=== PATIENT | male | born 1985 | race Caucasian/White ===

== ENCOUNTER 2016-03-01 05:43 | Day surgery (SDC) | payer OTHER ==
[2016-03-01] VITALS (7 sets, daily range): BP systolic 122–152; BP diastolic 64–83; PULSE 60–88; RESP 10–16; O2SAT 91–100
[~2016-03-01] VITALS: Ht 188 cm; Wt 102.6 kg
[~2016-03-01 05:43] MED LIST: SERT50TA9 PO; adderall; suboxone
[2016-03-01] MEDS ORDERED: Propofol 10,000 mCg/mL 20 mL Inj ONE (05:44)
[2016-03-01] MEDS ORDERED: fentaNYL-PF 50 mCg/mL 2 mL Inj ONE (05:44)
[2016-03-01] MEDS ORDERED: Phenylephrine 10,000 mCg/mL Inj ONE (05:44)
[2016-03-01] MEDS ORDERED: Ropivacaine-PF 0.5% 30 mL Inj ONE (05:44)
[2016-03-01] MEDS ORDERED: Remifentanil 1 mg/3 mL Inj ONE (05:44)
[2016-03-01] MEDS ORDERED: Ondansetron 2 mg/mL 2 mL Inj ONE (05:44)
[2016-03-01] MEDS ORDERED: MetoCLOpramide 5 mg/mL 2 mL Inj ONE (05:44)
[2016-03-01] MEDS ORDERED: Rocuronium 10 mg/mL 5 mL Inj ONE (05:44)
[2016-03-01] MEDS ORDERED: MeTOProlol 1 mg/mL 5 mL Inj ONE (05:44)
[2016-03-01] MEDS ORDERED: Dexamethasone 4 mg/mL Inj ONE (05:44)
[2016-03-01] MEDS: Lactated Ringer's 1,000 ML IV SCH ×3 (05:48→11:19)
[2016-03-01] MEDS ORDERED: Clindamycin Inj 600 MG in IV Premix 1 EACH IV ONE (06:00)
[2016-03-01] MEDS ORDERED: Bupivacaine-MPF 0.5% 30 mL Inj INJ ONE (08:00)
[2016-03-01] MEDS ORDERED: Lidocaine 2%-Epi 1:100,000 20 mL Inj NERVEBLOCK ONE (08:00)
[2016-03-01] MEDS ORDERED: Lactated Ringer's 1,000 ML IV SCH (08:57)
[2016-03-01] MEDS ORDERED: Lactated Ringer's 500 ML IV PRN (08:57)
--- NOTE | 2016-03-01 08:59 | PCM.HPANE ---
Patient Data Surgeon Admitting Provider: Attending Provider:Mat Hoffman DPM Primary Care Physician:Sg Garcia DO Other Provider:Gerald Rowan Anesthesia Reason for Visit Non Union Left Metatarsal Fracture And Left Hallux Ht/WT & BMI Height (Feet): 6 Height (Inches): 2.00 Weight (Kilograms): 102.6 Body Mass Index 29.00 Allergies Coded Allergies: Penicillins (Verified Allergy, Unknown, hives, 02/28/16) Past Anesthesia History Anesthesia History: Denies:: Anesthesia Reactions, Difficult Intubation, Fam Anesthesia Reaction Diabetes History Hx Diabetes?: No MRSA MRSA: No Medications Hypertension Medication: No Home Meds Incl Beta Luz Elena: No Reported Medications [suboxone] No Conflict CheckUnknown Dose DAILY 02/28/16 Sertraline HCl (Sertraline)50 Mg [id number] Mg PO DAILY 30 Days Ref 0 02/28/16 [adderall] No Conflict CheckUnknown Dose BID 02/28/16 History History of ENT Problems?: No HEENT History: Denies:: Cataracts Difficult Intubation Dysphagia Glaucoma Hearing Problem Sinus Problem TMJ (no longer) Hx of Heart Problems?: No Cardiovascular History: Denies:: AICD Atrial Fibrillation Coronary Artery Disease Edema Heart Murmur Hypertension Irregular Heartbeat Pacemaker Peripheral Vascular Hx of Respiratory Problem?: No Respiratory History: Denies:: Asthma COPD Dyspnea Emphysema Oxygen Administration Pneumonia Pulmonary Embolism Tuberculosis Use of C-PAP Machine Use of Inhalers / NEBS Hx Neurologic Problems?: No Neurological History: Denies:: CVA Headaches Multiple Sclerosis Parkinson's Disease Seizures TIA Hx of GI Problems?: No Gastrointestinal History: Denies:: Diverticulitis Gastroesphageal Reflux Gastrointestinal Bleeding Heartburn Hepatitis Liver Disease Hx of Problems?: No Genitourinary History: Denies:: Kidney Stones Urinary Tract Infection Male Hx: Denies:: Prostate Problems Scrotal Mass Testicular Surgery Skin History: Denies:: History Skin Disorders? Pressure Ulcers Hx Musculoskeletal Problems?: Yes Musculoskeletal History: Positive for:: Musculoskeletal Trauma (left foot stress fx- current admission problem) Denies:: Fibromyalgia Joint Replacement Myasthenia Gravis Osteoarthritis Rheumatoid Arthritis Systemic Lupus Hx of Psycho/Social Problems?: Yes Psycho Social History: Positive for:: Anxiety (PTSD) Hx Depression Hx Surgeries?: Yes (right eardrum) Hx Any Other Health Problems?: Yes Other History: Denies:: Cancer Thyroid Disease History Blood Transfusions: Denies:: Accept Blood Products? Blood Transfuse Reaction Blood Transfusions Hx Diabetes: No Hx Alcohol Use: YesAlcoholic Drinks Per Day: rarely- holidayHx Substance Use: NoHave You Smoked inLast 12 mo: No Stop/Bang S-Snoring: Do You Snore Loudly: No T-Tired: feel tired, fatigued: No O-Obsered: Observed not breath: No P-Blood Pressure: treated: No B- Body Mass Index > 35 kg/m2: No A- Age over 50: No N- Neck Large Circumference: No G- Gender Male: Yes MAYRA Total Score: 1 Risk Assessment Category Category 1A: Patient has history of documented sleep apnea, and HAS NOT received any narcotic, sedative or anesthesia administration during this stay. Category 1B: Patient has history of documented sleep apnea, and HAS received any narcotic , sedative or anesthesia administration during this stay Category 2: Patient has SUSPECTED Obstructive Sleep Apnea, and HAS received any narcotic , sedative or anesthesia administration during this stay. Category 3: Patient has SUSPECTED Obstructive Sleep Apnea and HAS NOT received narcotic, sedative or anesthesia administration during this stay. Category 4: Outpatient in Procedural Areas with known sleep apnea or who screen positive for High Risk via the STOP/BANG questionnaire. Exam Exam Vital Signs Vital Signs Date Time Temp Pulse Resp B/P Pulse Ox O2 Delivery O2 Flow Rate FiO2 03/01/16 06:09 36.6 60 16 122/74 100 Room Air General Appearance: Alert, Oriented X3, Cooperative, No Acute Distress HEENT/AIRWAY: MP 2, Neck Movement (FROM), Mouth Opening (3 FBMO) Lungs: Normal Air Movement Heart: Regular Rate/Rhythm Meds/Labs/Diagnostics Admission Meds Current Medications Lactated Ringer's (Lr) 1,000 ml @ 120 mls/hr [id number] IV Last administered on t 05:48; Start 03/01/16 at 05:00; Stop 03/01/16 at 13:19 Plan Impression Patient chart reviewed, patient interviewed and anesthestic plan with risks, benefits, and alternatives discussed, and informed consent obtained. NPO Status: 02/28 AT 2200 ASA Physical Status: ASA2 Mod Systemic Disease Anesthetic Plan: GA, Regional Block (Left popliteal block - risks of bleeding, infection, permanent nerve damage discusssed. AQA. Consent signed) Bene/Risks/Altern/Consents: Yes HP Complete Prior to Induction: Yes Fuentes Ríos MD Mar 01, 2016 07:03
[2016-03-01] MEDS ORDERED: HYDROmorphone 1 mg/mL Inj IVPUSH PRN (09:00)
[2016-03-01] MEDS ORDERED: fentaNYL-PF 50 mCg/mL 2 mL Inj IVPUSH PRN (09:00)
[2016-03-01] MEDS ORDERED: Ondansetron 2 mg/mL 2 mL Inj IVPUSH PRN (09:00)
[2016-03-01] MEDS ORDERED: Atropine 0.4 mg/mL Inj IVPUSH PRN (09:00)
[2016-03-01] MEDS ORDERED: MetoCLOpramide 5 mg/mL 2 mL Inj IVPUSH PRN (09:00)
[2016-03-01] MEDS ORDERED: EPHEDrine Sulfate 50 mg/mL Inj IVPUSH PRN (09:00)
[2016-03-01] MEDS ORDERED: hydrALAZINE 20 mg/mL Inj IVPUSH PRN (09:00)
[2016-03-01] MEDS ORDERED: Labetalol 5 mg/mL 4 mL Inj IV PRN (09:00)
[2016-03-01] MEDS ORDERED: Phenylephrine 10,000 mCg/mL Inj IVPUSH PRN (09:00)
[2016-03-01] MEDS ORDERED: HYDROcodone-APAP 5-325 mg Tablet PO PRN (11:55)
--- NOTE | 2016-03-01 12:01 | PCM.PODPO ---
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 The patient was transported into the operating room and placed on the operating room table in the normal supine position. The patient was then prepped and draped in the normal aseptic technique. A preoperative popliteal block was given by the anesthesia service. Attention was first paid to the dorsal aspect of the left second metatarsal shaft a linear incision approximately 5 cm in length was made with a fresh #15 blade. Once that initially her skin all subcutaneous neurovascular structures were identified and retracted out of the surgical field. A Metzenbaum scissor was utilized to bluntly and sharply dissected down through subcutaneous tissue to identify capsular tissue. A 15 blade was then used to incise through capsular tissue reflecting it both medially and laterally exposing the proximal shaft of the second metatarsal and second metatarsal base. Inspection of the second metatarsal base and shaft revealed severe hypertrophy surrounding the suspected fracture site. A rongeur was utilized to remove all noted hypertrophic bone until the fracture site was identified. The fracture site was prepared utilizing a #2 drill to expose cancellous bone at the fracture site helping bleeding bone was noted. A 4-hole Synthes nonlocking plate was inserted in the normal surgical fashion insuring reduction of the fracture. At this time it was determined not to attempt reduction of the patient's forefoot adductus deformity due to the bone quality which was mildly osteopenic. This wound was copiously flushed large amounts of normal saline good closure was performed utilizing number 3. 0 Vicryl and skin closure was performed utilizing #3-0 Prolene. Attention was then paid to the third metatarsal shaft a linear incision approximately 4 cm in length was made with a fresh #15 blade once the dorsal layer of skin all subcutaneous neurovascular structures were identified and retracted out of the surgical field. A midline scissor was utilized to bluntly and sharply dissected down through subcutaneous tissue taking care to avoid all tendinous and neurovascular structures. A 15 blade was used to excise the deep capsular tissue and periosteum exposing the midshaft of the third metatarsal. The fracture site was identified and debrided of all hypertrophic bone callus tissue. An attempt was made to place a K wire using a retrograde technique however adequate would reduction was not achieved in this manner. The K wire was then removed and a 3 hole Synthes 3.5 mm nonlocking plate was inserted in the normal surgical fashion. Reduction was noted intraoperatively of the fracture site a small dorsal gapping was appreciated at approximately .3 cc of DBM was inserted into this fracture site. Deep closure was performed utilizing #3-0 Vicryl and skin closure was performed utilizing 3. Prolene. Attention was then paid to the fourth metatarsal shaft a 3 cm incision was made with a #15 blade blunt dissection was carried down with the Metzenbaum scissor the capsular tissue was reflected utilizing a fresh #15 blade exposing the hypertrophic fracture site. Hypertrophic bone was removed with a rongeur the central portion of the bone appeared to be well healed and stable. A K wire was inserted under intraoperative C-arm guidance through the distal aspect of the fourth metatarsal head across the fracture site to provide additional stability. This wound was copiously flushed with normal saline and deep closure was performed utilizing number 3. 0 Vicryl and skin closure was performed utilizing number 3. 0 Prolene. This patient was placed into a dressing consisting of Adaptic sterile 4 x 4 gauze Kerlix and a mildly compressive Bell compression dressing with a posterior splint. The K wire was bent plantarly and capped. No complications occurred during this procedure Grafts, Implants: Grafts-See Implant Record, Implants-See Implant Record Complications There were no periprocedural complications identified. Condition Stable Anesthetic Administered: GA Catheters: None Output, Estimated Blood Loss: 100 Blood Admin during surgery: No Surgical Cast or Splint: Well-padded Short Leg Splint Surgical Specimen Removed: No Specimen sent to Pathology: No Post Operative Plan Ice and elevate left lower extremity Nonweightbearing left lower extremity Discharge to home when stable Follow-up in 1 week Contact office with any questions or concerns regarding care Mat Hoffman DPM Mar 01, 2016 12:01
--- NOTE | 2016-03-01 12:52 | PCM.ANEP1 ---
Post Anesthesia Phase 1 PACU Phase 1 Assessment Date of Service: Mar 01, 2016 Vital Signs Vital Signs Date Time Temp Pulse Resp B/P Pulse Ox O2 Delivery O2 Flow Rate FiO2 03/01/16 12:42 72 16 132/69 94 Room Air 03/01/16 12:34 36.8 72 16 131/74 96 Nasal Cannula 2 03/01/16 12:20 73 15 135/64 91 Room Air 03/01/16 12:10 88 13 130/74 94 Nasal Cannula 2 03/01/16 12:05 87 12 130/74 94 Nasal Cannula 2 03/01/16 11:50 37.2 78 10 152/83 98 Simple Mask 10 03/01/16 06:09 36.6 60 16 122/74 100 Room Air Anesthetic Administered: GA, Regional Block (Left popliteal block) Level of Alertness: Awake, talking VALDIVIA's with Equal Strength: Yes Pain: No Nausea or Vomiting: No Oxygen Delivery: Simple Mask Lungs: Normal Air Movement Dermatome Level: Full Sensation Fuentes Ríos MD Mar 01, 2016 12:52
--- NOTE | 2016-03-01 12:52 | PCM.ANEP2 ---
Post Anesthesia Evaluation ASA/CMS Post Anesthesia VS in Patient's Normal Range?: Yes Resp Stable; Airway Patent?: Yes CV Function & Hydration Stable: Yes Mental Status Recovered?: Yes Pain control Satisfactory?: Yes N/V Control Satisfactory?: Yes Fuentes Ríos MD Mar 01, 2016 12:52
== END 2016-03-01 23:59 | disposition home or self-care (01) ==
LOC: SAS 05:43
PROVIDERS: ATTEND Podiatrist Foot & Ankle Surgery
DX: M84.375K Stress fracture, left foot, subsequent encounter for fracture with nonunion (principal); M20.12 Hallux valgus (acquired), left foot; F41.9 Anxiety disorder, unspecified; Z79.899 Other long term (current) drug therapy